=== PATIENT | male | born 1955 | race Caucasian/White ===

== ENCOUNTER 2018-10-04 11:25 | Emergency (ER) | payer SELFPAY ==
[~2018-10-04] VITALS: Ht 185.4 cm; Wt 77.1 kg
--- NOTE | 2018-10-04 11:25 | NUR ---
ED Nurse Note: Pt BIBA from outside [facility] due to behavioral complaint, paramedics stated pt was "laying down on the street", complaining of bilateral feet pain. When asked assessment information, pt refused to answer any questions, stated " I do not want to tell you any more information". Will cont to monitor.
--- NOTE | 2018-10-04 11:46 | NUR ---
ED Nurse Note: Pt eloped when RN is on another assignment.
[2018-10-04 11:47] VITALS: BP 103/59
--- NOTE | 2018-10-05 09:04 | Emergency Room Report ---
History of Present Illness General Chief Complaint: Behavioral Complaint Source: Patient Present Illness Allergies: Coded Allergies: UNABLE TO ASSESS (Unverified , 10/04/18) Patient History Past Medical History: none Past Surgical History: none Pertinent Family History: none Social History: Denies: smoking, alcohol use, drug use Immunizations: UTD Reviewed Nursing Documentation: PMH: Agreed; PSxH: Agreed Nursing Documentation-PMH Past Medical History: No Stated History Physical Exam Vital Signs Date Time Temp Pulse Resp B/P (MAP) Pulse Ox O2 Delivery O2 Flow Rate FiO2 10/04/18 11:05 98.8 90 18 103/59 (74) 99 Room Air Medical Decision Making Diagnostic Impression: Primary Impression: Behavioral disorder Additional Impression: Patient left without being seen ER Course Patient brought in by EMS for evaluation. Found wandering on streets. would not provide his name. Did not have identification. Had bilateral ankle monitors. Would not state where he is residing. Patient was asked his name by nursing but he declined to use to provided. States he feels fine. Patient walked out of ED prior to MD evaluation Last Vital Signs Date Time Temp Pulse Resp B/P (MAP) Pulse Ox O2 Delivery O2 Flow Rate FiO2 10/04/18 11:47 98.8 90 18 103/59 99 Room Air Status: improved Disposition: LEFT W/OUT BEING SEEN Condition: Stable Referrals: NOT CHOSEN IPA/,REFERRING (PCP) Valentin Arnold MD Oct 05, 2018 09:04
== END 2018-10-04 12:46 | disposition left against medical advice (07) ==
LOC: EDBD 11:25 → EMR 11:46
DX: Z53.21 Procedure and treatment not carried out due to patient leaving prior to being seen by health care provider (principal)